=== PATIENT | female | born 1985 | race Hispanic/Latino ===

== ENCOUNTER 2024-07-29 15:14 | Outpatient (RCR) | payer BC, SELFPAY | END 2024-07-29 23:59 | disposition home or self-care (01) | LOC: RPT 15:14 | PROVIDERS: ATTENDING PHYSICIAN Physical Medicine & Rehabilitation; FAMILY PHYSICIAN Internal Medicine | DX: F07.81 Postconcussional syndrome (principal); Z73.6 Limitation of activities due to disability; M54.2 Cervicalgia; V44.9XXD Unspecified car occupant injured in collision with heavy transport vehicle or bus in traffic accident, subsequent encounter | CPT/HCPCS: 97110; 97163 ==

== ENCOUNTER 2024-08-27 14:00 | Outpatient (RCR) | payer BC, SELFPAY | END 2024-08-27 23:59 | disposition home or self-care (01) | LOC: RPT 14:00 | PROVIDERS: ATTENDING PHYSICIAN Physical Medicine & Rehabilitation; FAMILY PHYSICIAN Internal Medicine | DX: F07.81 Postconcussional syndrome (principal); Z73.6 Limitation of activities due to disability; M54.2 Cervicalgia; V44.9XXD Unspecified car occupant injured in collision with heavy transport vehicle or bus in traffic accident, subsequent encounter | CPT/HCPCS: 97110; 97140 ==

== ENCOUNTER 2024-10-02 09:03 | Outpatient (RCR) | payer BC, SELFPAY | END 2024-10-02 23:59 | disposition home or self-care (01) | LOC: RPT 09:03 | PROVIDERS: ATTENDING PHYSICIAN Physical Medicine & Rehabilitation; FAMILY PHYSICIAN Internal Medicine | DX: F07.81 Postconcussional syndrome (principal); Z73.6 Limitation of activities due to disability; M54.2 Cervicalgia; R51.9 Headache, unspecified; V44.9XXD Unspecified car occupant injured in collision with heavy transport vehicle or bus in traffic accident, subsequent encounter | CPT/HCPCS: 97110; 97140 ==

== ENCOUNTER 2024-10-18 09:16 | Outpatient (RCR) | payer BC, SELFPAY | END 2024-10-18 23:59 | disposition home or self-care (01) | LOC: RPT 09:16 | PROVIDERS: ATTENDING PHYSICIAN Physical Medicine & Rehabilitation; FAMILY PHYSICIAN Internal Medicine | DX: F07.81 Postconcussional syndrome (principal); Z73.6 Limitation of activities due to disability; M54.2 Cervicalgia; R20.2 Paresthesia of skin; R51.9 Headache, unspecified; V44.9XXD Unspecified car occupant injured in collision with heavy transport vehicle or bus in traffic accident, subsequent encounter | CPT/HCPCS: 97110 ==